=== PATIENT | male | born 1970 | race Two or more races ===

== ENCOUNTER 2022-06-13 08:18 | Inpatient (IN) | payer BC ==
[~2022-06-13] VITALS: Ht 190.5 cm; Wt 126.6 kg
--- NOTE | 2022-06-13 08:39 | NUR ---
To ER bed 12, "Been having pain in abdomen xcouple days- going towards right upper and back +Nausea and my UO seems dark. Hx Gallstones in the past", pt states the pain is more when he eats, p/s 03/15, aaox3, breathing even and non labored, awaiting md [place]
[2022-06-13] MEDS ORDERED: KETOROLAC TROMETHAMINE 15 MG/ML VIAL ONE (08:48)
[2022-06-13] MEDS ORDERED: PANTOPRAZOLE 40 MG VIAL ONE (08:48)
[2022-06-13] MEDS ORDERED: PANTOPRAZOLE 40 MG VIAL IV ONE (09:00)
[2022-06-13] MEDS ORDERED: IV NS 0.9% 1,000 ML BAG IV ONE (09:00)
[2022-06-13] MEDS ORDERED: KETOROLAC TROMETHAMINE INJ 30 MG/ML VIAL IV ONE (09:00)
[2022-06-13 09:04] LABS: BASOPHILS % (AUTO) 0.5 % (0.0-2.0); EOSINOPHILS % (AUTO) 3.3 % (0.0-6.0); HEMATOCRIT 43 % (39-51); LYMPHOCYTES # (AUTO) 1.1 K/uL (0.8-4.8); LYMPHOCYTES % (AUTO) 18.8 % (20.0-44.0); MEAN CORPUSCULAR HGB CONC 33 g/dl (31.0-36.0); MEAN CORPUSCULAR VOLUME 85 fL (80-96); MONOCYTES # (AUTO) 0.4 K/uL (0.1-1.30); MONOCYTES % (AUTO) 6.5 % (2.0-12.0); NEUTROPHILS # (AUTO) 4.2 K/uL (1.8-8.9); NEUTROPHILS % (AUTO) 70.9 % (43.0-81.0); PLATELET COUNT (AUTO) 208 K/uL (150-450); RED BLOOD CELL COUNT(AUTO) 5.03 MIL/uL (4.5-6.0); WHITE BLOOD COUNT (AUTO) 5.9 K/uL (4.3-11.0)
[2022-06-13 09:13] LABS: CALCIUM, SERUM 8.7 mg/dL (8.5-10.1); CREATININE 0.9 mg/dL (0.6-1.3); POTASSIUM 3.4 mmol/L (3.5-5.1)
[2022-06-13 09:53] LABS: ALBUMIN 3.3 g/dL (3.4-5.0); BILIRUBIN,DIRECT 2.1 mg/dL (0.0-0.2); BILIRUBIN,TOTAL 3.2 mg/dL (0.2-1.0); TOTAL PROTEIN, SERUM 6.8 g/dL (6.4-8.2)
--- NOTE | 2022-06-13 10:11 | NUR ---
WHEELED OUT VIA [facility] FOR CT SCAN
[2022-06-13] MEDS ORDERED: CT SWABBABLE VALVE TRANS SET 1 EA INFUS.SET MC ONE (10:14)
[2022-06-13] MEDS ORDERED: IOHEXOL-350 100 ML VIAL IV ONE (10:14)
[2022-06-13] MEDS ORDERED: IV NS 0.9% 250 ML IV ONE (10:14)
[2022-06-13] MEDS ORDERED: AMLO-212 PO (10:27)
[2022-06-13] MEDS ORDERED: PIPERACILLIN /TAZOBACTAM 3.375 G in IV D5W 50 ML IV ONE (10:30)
--- NOTE | 2022-06-13 11:00 | NUR ---
COVID SWAB DONE AND SENT TO LAB
[2022-06-13 11:07] LABS: BILIRUBIN,URINE MODERATE (NEGATIVE); COLOR,URINE DARK YELLOW (YELLOW); LEUKOCYTE ESTERASE ,URINE NEGATIVE (NEGATIVE); NITRITE, URINE NEGATIVE (NEGATIVE); PROTEIN,URINE TRACE mg/dl (NEGATIVE); UGLUCOSE NEGATIVE (NEGATIVE)
--- NOTE | 2022-06-13 12:20 | NUR ---
PAGED DR. DIAZ. GI MERCHANDISE PROCESSOR.
[2022-06-13 12:28] LABS: BACTERIA,URINE Rare /HPF (None Seen); CALCIUM OXALATE CRYSTALS,UR Few /HPF (None Seen); RBC,URINE 0-2 /HPF (0-2); SQUAMOUS EPITHELIAL CELL,UR Few /HPF (None Seen); WBC,URINE 0-2 /HPF (0-3)
--- NOTE | 2022-06-13 12:49 | NUR ---
MARIO CALLED AWAITING HOSPITALIST CALL BACK
--- NOTE | 2022-06-13 12:54 | NUR ---
WATCH LEADER AT BEDSIDE FOR XRAY
--- NOTE | 2022-06-13 13:04 | NUR ---
REPORT GIVEN TO MAURO PAIGE FOR JELENA
--- NOTE | 2022-06-13 13:23 | NUR ---
TRANSFERRED TO 309 IN STABLE CONDITION
--- NOTE | 2022-06-13 13:30 | NUR ---
MS SPEECH WRITER NOTE PT ADMITTED TO UN[facility] [place] AT 1325 WITH ER NURSE WITH WORKING DIAGNOSIS OF GALLSTONES. A/O X4, ABLE TO MAKE NEEDS KNOWN. PT ORIENTED TO STAFF AND ROOM. V/S TAKEN AND RECORDED. PT ON ROOM AIR, TOLERATING WELL, BREATHING EVEN AND UNLABORED, NO ACUTE RESPIRATORY DISTRESS NOTED. SKIN IS INTACT. IV ACCESS NOTED ON LAC #20G , SALINE LOCKED, INTACT AND PATENT, FLUSHING WELL. LUNGS CLEAR ON AUSCULTATION. SAFETY PRECAUTIONS IMPLEMENTED: BED IN LOWEST LOCKED POSITION, SIDE RAILS UP X2 CALL LIGHT AND TRAY TABLE WITHIN PLACED W/I EASY REACH OF PT. WILL CONTINUE TO MONITOR PT ACCORDINGLY.
[2022-06-13 16:00] VITALS: BP 137/93
[2022-06-13] MEDS ORDERED: MAG HYDROX/AL HYDROX/SIMETH 30 ML UDC PO PRN (16:30)
[2022-06-13] MEDS ORDERED: ACETAMINOPHEN 325 MG TABLET PO PRN (16:30)
[2022-06-13] MEDS ORDERED: ZOLPIDEM TARTRATE 5 MG TABLET PO PRN (16:30)
[2022-06-13] MEDS ORDERED: Z GUARD REMEDY 4 OZ OINT TP PRN (16:30)
[2022-06-13] MEDS ORDERED: MAGNESIUM HYDROXIDE 30 ML UDC PO PRN (16:30)
[2022-06-13] MEDS ORDERED: HYDROCODONE/APAP 5/325MG TABLET PO PRN (16:30)
[2022-06-13] MEDS ORDERED: ONDANSETRON HCL/PF 4 MG/2 ML VIAL IVP PRN (16:30)
[2022-06-13] MEDS: IV D5/0.45 NACL 1,000 ML IV PRN (16:46)
--- NOTE | 2022-06-13 17:31 | NUR ---
RN NOTES PATIENT IS SCHEDULED TO HAVE MRCP W/O CONTRAST, CALLED RADIOLOGY/MRI DEPT NO RESPONSE, LEFT VM. CONSENTS SIGNED AND PLACED PATIENT ON NPO PER MD ORDER. PATIENT IS AWARE.
[2022-06-13] MEDS: MORPHINE SULFATE INJ 2 MG/ML DISP.SYRIN IV PRN (17:51)
--- NOTE | 2022-06-13 18:45 | NUR ---
MS RN CLOSING NOTE PATIENT IN BED, AWAKE, A/O X4, ABLE TO MAKE NEEDS KNOWN. PT ON ROOM AIR, TOLERATING WELL, BREATHING EVEN AND UNLABORED, NO ACUTE RESPIRATORY DISTRESS NOTED. SKIN IS INTACT. IV ACCESS NOTED ON LAC #20G WITH D5 1/2 @125 ML/HR INTACT AND PATENT, FLUSHING WELL. LUNGS CLEAR ON AUSCULTATION. SAFETY PRECAUTIONS IMPLEMENTED: BED IN LOWEST LOCKED POSITION, SIDE RAILS UP X2 CALL LIGHT AND TRAY TABLE WITHIN PLACED W/I EASY REACH OF PT.. PATIENT ON NPO FOR MRCP TOMORROW. PATIENT AWARE. ALL NEEDS MET. ENDORSED TO THE NEXT NURSE.
[2022-06-13] MEDS: ZOSYN IVPB 3.375 G in IV D5W 50ml IV SCH (19:28)
--- NOTE | 2022-06-13 19:30 | NUR ---
MS RN OPENING NOTE RECEIVED PATIENT IN BED, A/OX4, AMBULATORY WITH STEADY GAIT. PER PATIENT PAIN IS TOLERABLE AT THIS TIME. IV LAC #20G-- STARTED ON ZOSYN @100CC/HR ENDORSED GRECIA WADE. PATIENT RE-ORIENTED AND ENCOURAGED WITH THE USE OF CALL LIGHT. REMINDED OF NPO STATUS-- PATIENT ACKNOWLEDGED. FOR MRCP TOMORROW MORNING. WILL CONTINUE WITH PATIENT'S CARE PLAN.
[2022-06-13 20:00] VITALS: BP 133/69
[2022-06-14] MEDS: ZOSYN IVPB 3.375 G in IV D5W 50ml IV SCH ×4 (00:11→17:33)
[2022-06-14] MEDS: MORPHINE SULFATE INJ 2 MG/ML DISP.SYRIN IV PRN (02:43)
[2022-06-14 06:25] LABS: BASOPHILS % (AUTO) 0.6 % (0.0-2.0); HEMATOCRIT 41 % (39-51); HEMOGLOBIN 13.5 g/dL (13.5-17.5); LYMPHOCYTES # (AUTO) 1.3 K/uL (0.8-4.8); LYMPHOCYTES % (AUTO) 20.3 % (20.0-44.0); MEAN CORPUSCULAR HGB CONC 33 g/dl (31.0-36.0); MEAN CORPUSCULAR VOLUME 85 fL (80-96); MONOCYTES # (AUTO) 0.4 K/uL (0.1-1.30); MONOCYTES % (AUTO) 7.1 % (2.0-12.0); NEUTROPHILS # (AUTO) 4.3 K/uL (1.8-8.9); PLATELET COUNT (AUTO) 201 K/uL (150-450); RED BLOOD CELL COUNT(AUTO) 4.83 MIL/uL (4.5-6.0); WHITE BLOOD COUNT (AUTO) 6.3 K/uL (4.3-11.0)
[2022-06-14 07:12] LABS: BILIRUBIN,DIRECT 1.7 mg/dL (0.0-0.2); BILIRUBIN,TOTAL 2.9 mg/dL (0.2-1.0); CALCIUM, SERUM 8.3 mg/dL (8.5-10.1); CREATININE 0.9 mg/dL (0.6-1.3); MAGNESIUM 2.1 mg/dL (1.8-2.4); PHOSPHORUS 2.6 mg/dL (2.5-4.9); POTASSIUM 3.2 mmol/L (3.5-5.1); TOTAL PROTEIN, SERUM 6.5 g/dL (6.4-8.2)
--- NOTE | 2022-06-14 07:27 | NUR ---
MS RN CLOSING NOTE PATIENT IN BED WITH EYES CLOSED, EASY TO AROUSE WITH NO APPARENT DISTRESS. A/OX4 THIS AM. NO C/O PAIN AT THIS TIME-- PAIN MANAGED WITH MEDICATION AND HOT PACKS. IV D5 1/2 NS RUNNING @125MLS/HR. ALL NEEDS ATTENDED. ALL SCHEDULED MEDICATIONS ADMINISTERED. SAFETY KEPT IN PLACE THE WHOLE SHIFT. ENDORSED TO GRECIA VEGA FOR CONTINUITY OF PATIENT CARE.
--- NOTE | 2022-06-14 07:30 | NUR ---
MS RN OPENING NOTES RECEIVED PATIENT AWAKE IN BED. PATIENT IS ALERT AND ORIENTED TIMES 4. NO PAIN NOTED. NO SOB NOTED. NO DISTRESS NOTED. IV ACCESS ON THE LAC # 20 INTACT . D5 1/2 NS RUNNING AT 125 ML/HR. AMBULATORY. CONTINENT. ALL SAFETY MEASURES IN PLACE. BED LOCKED IN THE LOWEST POSITION. CALL LIGHT AND TABLE IN EASY REACH. WILL CONTINUE TO MONITOR.
[2022-06-14 08:19] VITALS: BP 127/78
[2022-06-14] MEDS: IV D5/0.45 NACL 1,000 ML IV PRN (08:29)
[2022-06-14] MEDS ORDERED: PANTOPRAZOLE 40 MG VIAL IV SCH (09:00)
[2022-06-14] MEDS: POTASSIUM CL. PREMIX PERIPHER. 50 ML IV SCH ×4 (09:51→16:10)
[2022-06-14 16:25] VITALS: BP 156/80
--- NOTE | 2022-06-14 18:15 | NUR ---
MS RN NOTES PATIENT IS ALERT AND ORIENTED TIMES 4. NO PAIN NOTED. NO SOB NOTED. NO DISTRESS NOTED. PATIENT ANXIOUS ABOUT HOSPITAL COST AND BILLS. CALLED [employer]LE[employer] DRIVER AROUND 1500. SHE STATED DOES NOT KNOW ABOUT THE BILLING, SHE STATED CALL BUSINESS OFFICE WITH EXT, 1945. CALLED BUSINESS OFFICE SPOKE WITH LASHELL, SHE STATED THE PATIENT HAS 100 $ CO PAY WHICH HE PAID. LASHELL STATED WILL CALL BACK WITH MORE INFO LATER. BUSINESS OFFICE SPOKE WITH THE PATIENT. PATIENT WAITING TO SEE ONCOLOGIST AND GI CONSULT DR FOR SURGERY. JAMES MEREDITH AND DR VIVAR AWARE. PATIENT PATIENT WAS NOT MEDICALLY CLEARED , SO HE LEFT HOSPITAL AGAINST MEDICAL ADVICE AT 1815. IV SITE REMOVED COVERED WITH DRY DRESSING.
== END 2022-06-14 18:10 | disposition left against medical advice (07) | DRG 446 ==
LOC: ER 08:27 → MED 12:28
PROVIDERS: ADMIT Student in an Organized Health Care Education/Training Program; ATTEND Student in an Organized Health Care Education/Training Program
DX: K80.50 Calculus of bile duct without cholangitis or cholecystitis without obstruction (principal); Z20.822 Contact with and (suspected) exposure to COVID-19; I10 Essential (primary) hypertension; E11.9 Type 2 diabetes mellitus without complications; Z79.899 Other long term (current) drug therapy; K76.9 Liver disease, unspecified; K76.0 Fatty (change of) liver, not elsewhere classified; Z53.29 Procedure and treatment not carried out because of patient's decision for other reasons
CPT/HCPCS: 36415; 71045-TC; 74170-TC; 74181-TC; 76700-TC; 80048-TC; 80061-TC; 80076-TC; 81001; 83690-TC; 83735-TC; 84100-TC; 85025-TC; 87081-TC; C9113; C9803; G0378; J1885; J2270; J2543; J3480; J3490; J7030; J7050; J7060; Q9967